=== PATIENT | male | born 1990 | race Caucasian/White ===

== ENCOUNTER → 2017-05-23 | Outpatient (CLI) | payer OTHER ==
[~2017-05-23] MED LIST: PROBIOTIC1 EAC1 PO
--- NOTE | 2017-05-23 14:03 | RADIOLOGY REPORT PS360 ---
US RUQ-(ABD LTD)1ORGAN/QUAD/FU HISTORY: Right upper quadrant pain ABDOMINAL PAIN ORDERING PHYSICIAN: NAT VALENCIA PATIENT AGE: 27 years COMPARISON: None FINDINGS: Pancreas: Unremarkable. Liver: No focal liver lesion or biliary dilatation. Appropriate direction of blood flow is present in the portal vein. Right kidney: Unremarkable. Gallbladder: No stones, gallbladder wall thickening, pericholecystic fluid, or biliary dilatation is evident. There is sludge in the gallbladder. IMPRESSION: Gallbladder sludge otherwise negative right upper quadrant ultrasound
== END ==
LOC: RAD 09:36
DX: R10.11 Right upper quadrant pain (principal)

== ENCOUNTER → 2017-05-29 | Outpatient (CLI) | payer OTHER ==
[2017-05-30 12:36] LABS: HBsAg Screen Negative (Negative); Hep A Ab, IgM Negative (Negative); Hep B Core Ab, IgM Negative (Negative); Hep C Virus Ab <0.1 (0.0-0.9)
== END ==
LOC: LAB 08:19
PROVIDERS: Emergency Medicine
DX: R79.89 Other specified abnormal findings of blood chemistry (principal)